=== PATIENT | female | born 1940 | race Caucasian/White ===

== ENCOUNTER 2017-12-25 15:20 | Inpatient (IN) | payer MEDICARE ==
[~2017-12-25] VITALS: Ht 154.9 cm; Wt 72.2 kg
[2017-12-25] MEDS ORDERED: ZANTAC 150150 MG PO (15:55)
[2017-12-25] MEDS ORDERED: GLUCOPHAGE500 MG/TAB PO (16:43)
[2017-12-25] MEDS ORDERED: GLUCOTROL 5M5 MG/TAB PO (16:44)
[2017-12-25] MEDS ORDERED: HCTZ12.5TAB PO (16:45)
[2017-12-25] MEDS ORDERED: COZAAR 25MG25 MG/TAB PO (16:45)
[2017-12-25] MEDS ORDERED: LOPRESSOR 225 MG/TAB PO (16:46)
[2017-12-25] MEDS ORDERED: ZOCOR5 MG PO (16:46)
[2017-12-25] MEDS ORDERED: CELEXA 20MG20 MG/TAB PO (16:48)
[2017-12-25] MEDS ORDERED: ASPIRIN 32325 MG/TAB PO (16:48)
[2017-12-25] MEDS ORDERED: MULTI VITAMINS1 TAB PO (16:49)
[2017-12-25 18:38] LABS: CALCIUM 7.6 mg/dL (8.4-10.2); POTASSIUM 4.9 mmol/L (3.4-5.0)
[2017-12-25 18:39] LABS: CREATININE, serum 6.54 mg/dL (0.52-1.25)
[2017-12-25 18:43] LABS: INR 1.2 (0.8-3.0); PROTHROMBIN TIME 14.3 SECONDS (9.7-12.8)
[2017-12-25 19:21] LABS: ARTERIAL BLD GAS O2 SATURATION 90.1 % (92-100); ARTERIAL BLD GAS TCO2 CT 17.9; ARTERIAL BLOOD GAS BASE EXCESS -8.5 (-2-2); ARTERIAL BLOOD GAS HCO3 16.8 meq/L (22-26); ARTERIAL BLOOD GAS PCO2 33.5 mmHg (35-45); ARTERIAL BLOOD GAS PO2 67.2 mmHg (80-100); ARTERIAL BLOOD GAS pH 7.32 (7.35-7.45)
[2017-12-25 19:52] VITALS: BP 175/67; BP 175/94; PULSE 85; TEMP 98.7
[2017-12-25 20:07] VITALS: BP 175/94; PULSE 85
[2017-12-25 21:41] LABS: URINE PROTEIN:CREAT RATIO 1.39 (0.00-0.14)
[2017-12-25 21:43] LABS: MUCOUS Present /lpf; PH 6 (5-8); SQUAMOUS EPITHELIAL 0-2 /hpf; URINE APPEARANCE Hazy; URINE BACTERIA Rare /hpf; URINE BILIRUBIN Negative (NEGATIVE); URINE BLOOD 1+ (NEGATIVE); URINE COLOR Yellow; URINE GLUCOSE Negative (NEGATIVE); URINE KETONE Negative (NEGATIVE); URINE LEUKOCYTE ESTERASE Trace (NEGATIVE); URINE NITRATE Negative (NEGATIVE); URINE PROTEIN(semi-quant) 1+ (NEGATIVE); URINE UROBILINOGEN Negative (NEGATIVE); URINE WBC 20-50 /hpf
[2017-12-25 21:56] LABS: COLLECTION METHOD CLEAN CATCH
[2017-12-26 00:14] VITALS: BP 184/79; PULSE 80; TEMP 98.8
[2017-12-26 03:40] VITALS: BP 155/61; PULSE 85; TEMP 98.7
[2017-12-26 07:16] LABS: BASO % 0.4 % (0.0-2.0); EOS # 0.1 (0.0-0.7); EOS % 1.1 % (0-4.0); GRAN # 6.1 (1.4-6.5); GRAN % 75.2 % (42.2-75.2); LYMPH # 1.1 (1.2-3.4); LYMPH % 13.8 % (20.0-51.0); MEAN CELL VOLUME 74 fl (80.0-100.0); MEAN CORPUSCULAR HGB CONC 32 g/dl (33.0-37.0); MEAN PLATELET VOLUME 10.2 fl (7.4-10.4); MONO # 0.7 (0.1-0.6); MONO % 8.9 % (1.7-9.3); PLATELET COUNT 184 K/mm3 (130-400); RED BLOOD COUNT 3.15 M/mm3 (4.10-5.30); REDCELL DISTRIBUTION WIDTH-CV 20.5 % (11.5-14.5)
[2017-12-26 07:29] LABS: HEMATOCRIT 23.2 % (37.0-47.0); HEMOGLOBIN 7.3 g/dl (12.5-16.0); MEAN CORPUSCULAR HEMOGLOBIN 23 pg (27.0-31.0)
[2017-12-26 07:36] LABS: CALCIUM 7.8 mg/dL (8.4-10.2); PHOSPHOROUS 4.5 mg/dL (2.5-4.5); POTASSIUM 3.8 mmol/L (3.4-5.0)
[2017-12-26 07:51] LABS: CREATININE, serum 4.96 mg/dL (0.52-1.25)
[2017-12-26 08:23] VITALS: BP 162/72; PULSE 94; TEMP 98.6
[2017-12-26 11:57] VITALS: BP 147/88; PULSE 73; TEMP 98.1
[2017-12-26 16:09] VITALS: BP 184/65; PULSE 73; TEMP 97.2
[2017-12-26 20:16] VITALS: BP 169/63; PULSE 73; TEMP 98.2
[2017-12-27 00:32] VITALS: BP 173/59; PULSE 79; TEMP 98.5
[2017-12-27 04:18] VITALS: BP 172/74; PULSE 81; TEMP 98.7
[2017-12-27 07:46] LABS: BASO % 0.5 % (0.0-2.0); EOS # 0.3 (0.0-0.7); EOS % 3.3 % (0-4.0); GRAN # 5.5 (1.4-6.5); GRAN % 69.4 % (42.2-75.2); LYMPH # 1.4 (1.2-3.4); LYMPH % 17.5 % (20.0-51.0); MEAN CELL VOLUME 75 fl (80.0-100.0); MEAN CORPUSCULAR HGB CONC 31 g/dl (33.0-37.0); MEAN PLATELET VOLUME 9.8 fl (7.4-10.4); MONO # 0.7 (0.1-0.6); MONO % 8.8 % (1.7-9.3); PLATELET COUNT 175 K/mm3 (130-400); RED BLOOD COUNT 3.39 M/mm3 (4.10-5.30); REDCELL DISTRIBUTION WIDTH-CV 20.1 % (11.5-14.5)
[2017-12-27 07:52] LABS: HEMATOCRIT 25.4 % (37.0-47.0); HEMOGLOBIN 7.9 g/dl (12.5-16.0); MEAN CORPUSCULAR HEMOGLOBIN 23 pg (27.0-31.0)
[2017-12-27 07:55] VITALS: BP 189/70; PULSE 73; TEMP 98
[2017-12-27 08:05] LABS: CALCIUM 8.7 mg/dL (8.4-10.2); CREATININE, serum 2.77 mg/dL (0.52-1.25); POTASSIUM 3.7 mmol/L (3.4-5.0)
[2017-12-27 11:17] VITALS: BP 168/79; PULSE 68; TEMP 97.6
[2017-12-27] MEDS ORDERED: VOLTAREN SR25 MG/TAB PO (15:36)
[2017-12-27 16:00] VITALS: BP 173/67; PULSE 72; TEMP 98.4
[2017-12-27 20:46] VITALS: BP 180/74; PULSE 76; TEMP 98.3
[2017-12-28 01:07] VITALS: BP 174/68; PULSE 80; TEMP 99.3
[2017-12-28 03:17] VITALS: BP 185/60; PULSE 79; TEMP 99.3
[2017-12-28 07:51] LABS: BASO % 0.3 % (0.0-2.0); EOS # 0.3 (0.0-0.7); EOS % 3.1 % (0-4.0); GRAN # 6.1 (1.4-6.5); GRAN % 69.3 % (42.2-75.2); LYMPH # 1.4 (1.2-3.4); LYMPH % 15.6 % (20.0-51.0); MEAN CELL VOLUME 74 fl (80.0-100.0); MEAN CORPUSCULAR HGB CONC 31 g/dl (33.0-37.0); MEAN PLATELET VOLUME 9.8 fl (7.4-10.4); MONO % 11.2 % (1.7-9.3); PLATELET COUNT 170 K/mm3 (130-400); RED BLOOD COUNT 3.17 M/mm3 (4.10-5.30); REDCELL DISTRIBUTION WIDTH-CV 19.6 % (11.5-14.5)
[2017-12-28 07:53] LABS: HEMATOCRIT 23.6 % (37.0-47.0); HEMOGLOBIN 7.4 g/dl (12.5-16.0); MEAN CORPUSCULAR HEMOGLOBIN 23 pg (27.0-31.0)
[2017-12-28 08:06] LABS: CALCIUM 8.7 mg/dL (8.4-10.2); CREATININE, serum 1.74 mg/dL (0.52-1.25)
[2017-12-28 08:14] LABS: POTASSIUM 3.4 mmol/L (3.4-5.0)
[2017-12-28 08:17] VITALS: BP 161/77; PULSE 85; TEMP 98.1
[2017-12-28] MEDS ORDERED: NORVASC 10MG10 MG PO (11:03)
[2017-12-28] MEDS ORDERED: FERRO-TIME325 MG PO (11:06)
[2017-12-28 11:28] VITALS: BP 159/67; PULSE 69; TEMP 97
== END 2017-12-28 11:41 | disposition home or self-care (01) | DRG 683 ==
LOC: MEDICAL 15:20
PROVIDERS: Internal Medicine
DX: N17.9 Acute kidney failure, unspecified (principal); E87.2 Acidosis; E87.5 Hyperkalemia; I10 Essential (primary) hypertension; D50.9 Iron deficiency anemia, unspecified
CPT/HCPCS: J1650